=== PATIENT | male | born 1940 | race Caucasian/White ===

== ENCOUNTER → 2017-01-11 | Outpatient (CLI) | payer OTHER ==
--- NOTE | 2017-01-11 13:29 | PCVCIMAG ---
APPROVED REPORT Study performed: 01/11/2017 11:41:29 EXAM: Comprehensive 2D, Doppler, and color-flow Echocardiogram Patient Location: Echo lab Status: routine Other Information Study Quality: Good Indications Congestive Heart Failure Cardiomegaly Cardiomyopathy 2D Dimensions LVEF(%): 24.50 (>50%) IVSd: 9.81 (7-11mm)LVOT Diam: 21.57 (18-24mm) LVDd: 60.68 mm PWd: 8.27 (7-11mm) LVDs: 53.68 (25-40mm) Left Atrium: 41.07 (27-40mm) LV Single Plane 4CH: 23.36 % LV Single Plane 2CH: 32.62 %Galeana's LVEF: 27.99 % Biplane EF: 27.3 % Volumes Left Atrial Volume (Systole) Single Plane 4CH: 43.15 mLSingle Plane 2CH: 46.94 mL LA ESV Index: 22.00 mL/m2 Aortic Valve AoV Peak Jim.: 1.02 m/s AO Peak Gr.: 4.15 mmHgLVOT Max P.07 mmHg LVOT Max V: 0.72 m/s [place]ENN[place] Vmax: 2.58 cm2 Mitral Valve E/A Ratio: 0.3 MV Decel. Time: 93.71 ms MV E Max Jim.: 0.29 m/s MV A Jim.: 0.86 m/s IVRT: 89.97 ms Pulmonary Valve PV Peak Jim.: 1.09 m/sPV Peak Gr.: 4.71 mmHg Pulmonary Vein P Vein S: 0.54 m/sP Vein A: 0.20 m/s P Vein D: 0.26 m/sP Vein A Dur.: 69.2 msec P Vein S/D Ratio: 2.08 Tricuspid Valve TV Vmax: 0.30 m/s Left Ventricle Left ventricle is moderately dilated. There is normal LV segmental wall motion. There is normal left ventricular wall thickness. Left ventricular systolic function is severely decreased.Worse ant lat peralta LVEF is 25-30%. Grade I - abnormal relaxation pattern. Right Ventricle The right ventricle is normal size. The right ventricular systolic function is normal. Atria The left atrium size is normal. The right atrium size is normal. Aortic Valve Aortic valve is trileaflet. Mild aortic valve sclerosis without stenosis or regurgitation. No aortic regurgitation is present. There is no aortic valvular stenosis. Mitral Valve The mitral valve is normal in structure. There is no mitral valve regurgitation noted. No evidence of mitral valve stenosis. Tricuspid Valve The tricuspid valve is normal in structure. There is no tricuspid valve regurgitation noted. Pulmonic Valve The pulmonary valve is normal in structure. There is no pulmonic valvular regurgitation. Great Vessels The aortic root is normal in size. The ascending aorta is normal in size. IVC is not seen. Pericardium There is no pericardial effusion. There is no pleural effusion. <Conclusion> Left ventricle is moderately dilated. Left ventricular systolic function is severely decreased. LVEF is 25-30%. Left ventricular systolic function is severely decreased.Worse ant lat peralta Grade I - abnormal relaxation pattern. The left atrium size is normal. The right atrium size is normal. The mitral valve is normal in structure. There is no pericardial effusion.
== END | disposition home or self-care (01) ==
LOC: PCVCIMAG 11:35
PROVIDERS: ATTEND Internal Medicine Cardiovascular Disease
DX: I05.9 Rheumatic mitral valve disease, unspecified (principal); I44.0 Atrioventricular block, first degree; I25.10 Atherosclerotic heart disease of native coronary artery without angina pectoris; I48.0 Paroxysmal atrial fibrillation; I11.0 Hypertensive heart disease with heart failure; I50.20 Unspecified systolic (congestive) heart failure; E78.5 Hyperlipidemia, unspecified; E11.9 Type 2 diabetes mellitus without complications; Z87.01 Personal history of pneumonia (recurrent); Z90.49 Acquired absence of other specified parts of digestive tract; Z87.891 Personal history of nicotine dependence; Z79.82 Long term (current) use of aspirin; Z79.899 Other long term (current) drug therapy
CPT/HCPCS: 93308; G0463

== ENCOUNTER → 2017-03-15 | Outpatient (CLI) | payer OTHER ==
--- NOTE | 2017-03-15 17:03 | PCVCIMAG ---
APPROVED REPORT Study performed: 03/15/2017 13:11:23 EXAM: Comprehensive 2D, Doppler, and color-flow Echocardiogram Patient Location: Echo lab Status: routine BSA: 2.05 HR: 82 bpmBP: 102/70 mmHg Rhythm: NSR Other Information Study Quality: Good Risk Factors: Cardiac Risk Factors: Hyperlipidemia, HTN, DM Indications Atrial Fibrillation CAD 2D Dimensions LVEF(%): 28.00 (>50%) IVSd: 10.84 (7-11mm) LVDd: 58.85 mm PWd: 10.61 (7-11mm) LVDs: 52.99 (25-40mm) LV Single Plane 4CH: 30.00 % LV Single Plane 2CH: 27.87 %Galeana's LVEF: 28.93 % Left Ventricle Left ventricle is mildly dilated. Mild concentric left ventricular hypertrophy. Left ventricular systolic function is moderate to severely decreased. LVEF is 25%. Right Ventricle The right ventricle is normal size. The right ventricular systolic function is normal. Atria The left atrium size is normal. The right atrium size is normal. <Conclusion> Left ventricle is mildly dilated. Mild concentric left ventricular hypertrophy. Left ventricular systolic function is moderate to severely decreased. LVEF is 25%. The right ventricle is normal size. The left atrium size is normal.
== END | disposition home or self-care (01) ==
LOC: PCVCIMAG 12:58
PROVIDERS: ATTEND Internal Medicine Cardiovascular Disease
DX: I25.10 Atherosclerotic heart disease of native coronary artery without angina pectoris (principal); I48.0 Paroxysmal atrial fibrillation; G47.33 Obstructive sleep apnea (adult) (pediatric); I25.5 Ischemic cardiomyopathy; E78.00 Pure hypercholesterolemia, unspecified; I11.0 Hypertensive heart disease with heart failure; I50.9 Heart failure, unspecified; E11.9 Type 2 diabetes mellitus without complications; Z90.49 Acquired absence of other specified parts of digestive tract; Z79.82 Long term (current) use of aspirin; Z87.891 Personal history of nicotine dependence
CPT/HCPCS: 80061; 93005; 93308; G0463

== ENCOUNTER → 2017-07-24 | Outpatient (CLI) | payer OTHER | END | disposition home or self-care (01) | LOC: PCVCCLINIC 14:56 | DX: I25.10 Atherosclerotic heart disease of native coronary artery without angina pectoris (principal); I11.0 Hypertensive heart disease with heart failure; I50.22 Chronic systolic (congestive) heart failure; G47.33 Obstructive sleep apnea (adult) (pediatric); I25.5 Ischemic cardiomyopathy; Z95.810 Presence of automatic (implantable) cardiac defibrillator; Z87.891 Personal history of nicotine dependence; Z79.82 Long term (current) use of aspirin; Z79.899 Other long term (current) drug therapy | CPT/HCPCS: 93282; G0463 ==

== ENCOUNTER → 2017-10-24 | Outpatient (CLI) | payer OTHER | END | disposition home or self-care (01) | LOC: PCVCIMAG 16:00 | DX: I25.10 Atherosclerotic heart disease of native coronary artery without angina pectoris (principal); I10 Essential (primary) hypertension; I25.5 Ischemic cardiomyopathy; E78.00 Pure hypercholesterolemia, unspecified; G47.33 Obstructive sleep apnea (adult) (pediatric); E66.3 Overweight; Z95.810 Presence of automatic (implantable) cardiac defibrillator; Z87.891 Personal history of nicotine dependence; Z79.899 Other long term (current) drug therapy; Z79.82 Long term (current) use of aspirin | CPT/HCPCS: 93005; 93306; G0463 ==

== ENCOUNTER → 2018-04-16 | Outpatient (CLI) | payer OTHER | END | disposition home or self-care (01) | LOC: PCVCCLINIC 15:51 | PROVIDERS: ATTEND Internal Medicine Cardiovascular Disease | DX: I42.9 Cardiomyopathy, unspecified (principal); I11.0 Hypertensive heart disease with heart failure; I50.9 Heart failure, unspecified; I25.10 Atherosclerotic heart disease of native coronary artery without angina pectoris; I10 Essential (primary) hypertension; E78.00 Pure hypercholesterolemia, unspecified; G47.33 Obstructive sleep apnea (adult) (pediatric); E11.9 Type 2 diabetes mellitus without complications; Z95.810 Presence of automatic (implantable) cardiac defibrillator; Z87.891 Personal history of nicotine dependence; Z79.899 Other long term (current) drug therapy | CPT/HCPCS: 93005; 93282; G0463 ==

== ENCOUNTER → 2019-01-07 | Outpatient (CLI) | payer OTHER ==
--- NOTE | 2019-01-07 17:36 | PCVCIMAG ---
APPROVED REPORT Study performed: 01/07/2019 14:56:46 EXAM: Comprehensive 2D, Doppler, and color-flow Echocardiogram Patient Location: Echo lab Room #: [id number]: routine BSA: 2.01 HR: 63 bpmBP: 100/63 mmHg Rhythm: NSR Other Information Study Quality: Adequate Risk Factors: Cardiac Risk Factors: HTN, Hyperlipidemia, DM Indications CAD Cardiomyopathy ICD 2D Dimensions IVSd: 12.14 (7-11mm)LVOT Diam: 21.00 (18-24mm) LVDd: 47.07 mm PWd: 12.21 (7-11mm)Ascending Ao: 40.99 (22-36mm) LVDs: 31.99 (25-40mm) Left Atrium: 41.47 (27-40mm) Aortic Root: 35.27 mm LV Single Plane 4CH: 55.60 % LV Single Plane 2CH: 52.25 % Biplane EF: 51.5 % Volumes Left Atrial Volume (Systole) Single Plane 4CH: 29.34 mLSingle Plane 2CH: 44.42 mL LA ESV Index: 18.00 mL/m2 Aortic Valve AoV Peak Jim.: 1.23 m/s AO Peak Gr.: 6.09 mmHgLVOT Max P.86 mmHg LVOT Max V: 0.68 m/s [place] Vmax: 1.96 cm2 Mitral Valve E/A Ratio: 0.6 MV Decel. Time: 248.11 ms MV E Max Jim.: 0.49 m/s MV A Jim.: 0.88 m/s IVRT: 58.82 ms TDI E/Lateral E': 9.80E/Medial E': 12.25 Medial E' Jim.: 0.04 m/s Lateral E' Jim.: 0.05 m/s Pulmonary Valve PV Peak Jim.: 1.13 m/sPV Peak Gr.: 5.09 mmHg Pulmonary Vein P Vein S: 0.58 m/sP Vein A: 0.24 m/s P Vein D: 0.42 m/sP Vein A Dur.: 100.3 msec P Vein S/D Ratio: 1.38 Tricuspid Valve TR Peak Jim.: 1.88 m/s TR Peak Gr.: 14.15 mmHg Left Ventricle The left ventricle is normal size. There is normal LV segmental wall motion. Mild concentric left ventricular hypertrophy. Left ventricular systolic function is low normal. LVEF is 50-55%. Mild diastolic dysfunction is present (impaired relaxation pattern). Right Ventricle The right ventricle is normal size. The right ventricular systolic function is normal. Device lead is present in the right ventricle. Atria The left atrium size is normal. The right atrium size is normal. Aortic Valve The Aortic valve is sclerotic. No aortic regurgitation is present. There is no aortic valvular stenosis. Mitral Valve The mitral valve is normal in structure. Trace mitral regurgitation. No evidence of mitral valve stenosis. Tricuspid Valve The tricuspid valve is normal in structure. Trace tricuspid regurgitation. Unable to assess PA pressure. Pulmonic Valve The pulmonary valve is normal in structure. Trace pulmonic regurgitation. Great Vessels The aortic root is normal in size. The ascending aorta is mildy dilated (4.1cm). IVC is not well visualized. Pericardium There is no pericardial effusion. <Conclusion> The left ventricle is normal size. Mild concentric left ventricular hypertrophy. LVEF is 50-55%. Mild diastolic dysfunction is present (impaired relaxation pattern). The left atrium size is normal. The Aortic valve is sclerotic. There is no aortic valvular stenosis. Trace mitral regurgitation. The tricuspid valve is normal in structure. The aortic root is normal in size. The ascending aorta is mildy dilated (4.1cm). There is no pericardial effusion.
== END | disposition home or self-care (01) ==
LOC: PCVCIMAG 13:47
PROVIDERS: ATTEND Internal Medicine Cardiovascular Disease
DX: G47.33 Obstructive sleep apnea (adult) (pediatric) (principal); I42.9 Cardiomyopathy, unspecified; I25.5 Ischemic cardiomyopathy; E78.00 Pure hypercholesterolemia, unspecified; Z95.810 Presence of automatic (implantable) cardiac defibrillator; Z87.891 Personal history of nicotine dependence
CPT/HCPCS: 93306